=== PATIENT | male | born 1995 | race Caucasian/White ===

== ENCOUNTER 2020-05-26 11:50 | Emergency (ER) | payer MEDICARE, OTHER ==
[~2020-05-26 11:50] MED LIST: CLEOCIN HCL300 MG PO
[2020-05-26 15:31] LABS: RED BLOOD COUNT 4.97 M/UL (4.20-5.50); WHITE BLOOD COUNT 12.9 K/UL (4.5-11.0)
[2020-05-26 16:08] LABS: BUN/CREATININE RATIO 10 (0-10)
[2020-05-26] MEDS ORDERED: ZITHROMAX250 MG PO (16:15)
== END 2020-05-26 16:55 | disposition home or self-care (01) ==
LOC: ER1 11:50
PROVIDERS: Physician Assistant
DX: M79.604 Pain in right leg (principal); J18.9 Pneumonia, unspecified organism; I10 Essential (primary) hypertension; F17.210 Nicotine dependence, cigarettes, uncomplicated; Z79.01 Long term (current) use of anticoagulants; Z88.8 Allergy status to other drugs, medicaments and biological substances
CPT/HCPCS: 71045; 80048; 82550; 82553; 83874; 84484; 85025; 93005; 93971; 99284

== ENCOUNTER → 2020-09-15 | Outpatient (CLI) | payer MEDICARE, OTHER ==
[~2020-09-15] MED LIST changes: +ZITHROMAX250 MG PO
[2020-09-15 16:00] LABS: HEMOGLOBIN 14.8 gm/dl (14.0-17.5); RED BLOOD COUNT 4.92 M/UL (4.20-5.50); WHITE BLOOD COUNT 14.8 K/UL (4.5-11.0)
== END ==
LOC: LBRF 15:08
PROVIDERS: Nurse Practitioner Primary Care
DX: J98.9 Respiratory disorder, unspecified (principal); Z79.899 Other long term (current) drug therapy
CPT/HCPCS: 85025

== ENCOUNTER → 2020-10-01 | Outpatient (CLI) | payer MEDICARE, OTHER ==
[2020-10-01 16:23] LABS: HEMOGLOBIN 11.7 gm/dl (14.0-17.5); RED BLOOD COUNT 4.56 M/UL (4.20-5.50); WHITE BLOOD COUNT 11.1 K/UL (4.5-11.0)
== END ==
LOC: LBRF 15:56
PROVIDERS: Nurse Practitioner Primary Care
DX: J98.9 Respiratory disorder, unspecified (principal); Z79.899 Other long term (current) drug therapy
CPT/HCPCS: 85025

== ENCOUNTER 2020-10-09 16:56 | Emergency (ER) | payer MEDICARE, OTHER | END 2020-10-09 18:00 | disposition home or self-care (01) | LOC: ER1 16:56 | DX: U07.1 COVID-19 (principal); R59.0 Localized enlarged lymph nodes; Z88.6 Allergy status to analgesic agent; Z88.8 Allergy status to other drugs, medicaments and biological substances | CPT/HCPCS: 99283 ==

== ENCOUNTER → 2021-04-12 | Outpatient (CLI) | payer OTHER | LOC: KOH-I 09:15 | DX: R06.00 Dyspnea, unspecified (principal); K76.0 Fatty (change of) liver, not elsewhere classified | CPT/HCPCS: 71250 ==

== ENCOUNTER → 2021-06-02 | Outpatient (CLI) | payer MEDICARE, OTHER | LOC: KOH-I 10:24 | DX: M25.561 Pain in right knee (principal); I82.461 Acute embolism and thrombosis of right calf muscular vein; I10 Essential (primary) hypertension; G47.30 Sleep apnea, unspecified; K59.00 Constipation, unspecified; E78.5 Hyperlipidemia, unspecified; E55.9 Vitamin D deficiency, unspecified; Z91.89 Other specified personal risk factors, not elsewhere classified; Z96.698 Presence of other orthopedic joint implants; M25.861 Other specified joint disorders, right knee | CPT/HCPCS: 73700; 93971 ==